=== PATIENT | female | born 1985 | race Caucasian/White ===

== ENCOUNTER 2018-04-01 08:00 | Outpatient (RCR) | payer BC, OTHER ==
[2018-04-01] MEDS ORDERED: WATER FOR INJ,STERILE 20 ML 20 ML ONE (08:15)
[2018-04-01] MEDS ORDERED: SINCALIDE 5 MCG VIAL INJ ONE (08:15)
--- NOTE | 2018-04-01 09:58 | RADIOLOGY IMAGING REPORT ---
FACILITY: [facility] PATIENT NAME: Lilli Odonnell : 1985 MR: [id number] V: [id number] EXAM DATE: ORDERING PHYSICIAN: SILVIA HUSSEIN TECHNOLOGIST: Location: [facility] Patient: Lilli Odonnell : 1985 Visit/Account:[id number] Date of Sevice: 04/01/2018 Examination: Nuclear Medicine HIDA Scan with Kinevac Stimulation COMPARISON: None available HISTORY: Abdominal pain with bloating, nausea, and constipation. TECHNIQUE: 6.3 mCi Tc99m Mebrofenin was injected intravenously. Multiple sequential gamma camera rigoberto ges of the abdomen were obtained for 25 minutes. At that time, 2.9 mcg Kinevac was injected intraveno usly and an additional 30 minutes of gamma camera imaging data was acquired. A computer-generated reg ion of interest was placed around the gallbladder and time-activity curve for the gallbladder was eamon ived. The gallbladder ejection fraction was calculated. FINDINGS: Liver uptake and excretion: normal Time to appearance: Bile ducts: 7 minutes. Gallbladder: 8 minutes. Duodenum: 18 minutes. Duodenogastric reflux: none Post IV Kinevac: Ejection fraction = 15 %, (normal > 35%). Patient symptoms: Nausea. IMPRESSION: 1. No evidence of cholecystitis or bile duct obstruction. 2. Decreased gallbladder ejection fraction of 15% is suggestive of a functional gallbladder disorder. Report Dictated By: Adan Landeros MD at 04/01/2018 9:51 AM Report E-Signed By: Adan Landeros MD at 04/01/2018 9:54 AM WSN:[id number]
--- NOTE | 2018-04-03 10:39 | RADIOLOGY IMAGING REPORT ---
FACILITY: [facility] PATIENT NAME: Lilli Odonnell : 1985 MR: [id number] V: [id number] EXAM DATE: ORDERING PHYSICIAN: SILVIA HUSSEIN TECHNOLOGIST: Location: [facility] Patient: Lilli Odonnell : 1985 Visit/Account:[id number] Date of Sevice: 04/03/2018 EXAMINATION: Abdominal ultrasound complete HISTORY: Bloating, nausea and vomiting for years, symptoms worsening COMPARISON: HIDA scan April 01, 2018 FINDINGS: Gallbladder: No stones, wall thickening, pericholecystic fluid or sonographic Dove sign. Liver: Negative. Common duct: Normal measuring 3.9 mm. Pancreas: Negative. Spleen: Normal in size and echogenicity measuring 8.5 cm in length. Kidneys: Normal in size and echogenicity, the right measures 10.9 cm in length, and the left and 0.1 cm. No hydronephrosis. Upper abdominal aorta and IVC: Negative. Ascites: None. IMPRESSION: Normal abdominal ultrasound. Report Dictated By: Danielle Josue MD at 04/03/2018 10:33 AM Report E-Signed By: Danielle Josue MD at 04/03/2018 10:35 AM WSN:[email or web address]
== END 2018-04-03 18:00 | disposition home or self-care (01) ==
LOC: NUC 08:00 → EDSTATUS 04-03 07:06 → NUC 04-03 07:06
PROVIDERS: ATTEND Family Medicine
DX: R10.9 Unspecified abdominal pain (principal); R14.0 Abdominal distension (gaseous); R11.0 Nausea
CPT/HCPCS: 76700; 78226; A9537; J2805